=== PATIENT | male | born 1970 | race Caucasian/White ===

== ENCOUNTER 2016-10-15 17:25 | Emergency (ER) | payer OTHER ==
[2016-10-15 17:43] VITALS: BP 136/85; PULSE 56; TEMP 97.5; BMI 29.3
[2016-10-15] MEDS ORDERED: predniSONE 20 MG TABLET (UD) PO ONE (18:53)
[2016-10-15] MEDS ORDERED: ALBUTEROL SO4 2.5/IPRATROPIUM 0.5 INH SOL 3 ML VIAL.NEB. NEB ONE ×2 (18:53→19:06)
--- NOTE | 2016-10-15 18:53 | PDOC ---
History of Present Illness - General Chief Complaint: Allergic Reaction Stated Complaint: SINUS AND THROAT CONGESTION Time Seen by Provider: 10/15/16 18:42 - History of Present Illness Initial Comments: 10/15/16 18:50 46-year-old male with a history of seasonal ALLERGIES, and occasionally in the past he is needed to use the metered-dose inhaler, although he has no diagnosis of asthma He states that in the past week or so seasonal ALLERGIES of flared, and gotten much worse He is complaining of sinus fullness, runny nose, watery eyes, and for the past 2 days she started to feel some tightness in his chest and possible wheezing He denies any fevers or chills He states that this does not feel like a URI, and feels like a bad bout of seasonal ALLERGIES He denies any chest pain or shortness of breath He denies any tongue or throat swelling He denies any other complaints at this time, and the remainder of the review of systems is negative Past History - Past Medical History Allergies/Adverse Reactions: Allergies Allergy/AdvReac Type Severity Reaction Status Date / Time Penicillins Allergy Verified 10/15/16 17:37 Home Medications: Ambulatory Orders Albuterol Sulfate Inhaler - [Ventolin Hfa Inhaler -] 1 - 2 inh PO Q4H #1 inhaler 10/15/16 Fluticasone Prop 0.05% Nasal [Flonase -] 1 - 2 spray NS DAILY #1 spray.pump 09/28 Loratadine/Pseudoephedrine [[facility] Allergy Relief D-24 Tablet] 1 each PO HS Prednisone [Deltasone -] 40 mg PO DAILY #8 tablet 10/15/16 - Psycho/Social/Smoking Cessation Hx Anxiety: No Suicidal Ideation: No Smoking History: Never smoked Hx Alcohol Use: Yes (SOCIAL) Drug/Substance Use Hx: No Substance Use Type: None *Physical Exam - Vital Signs Last Vital Signs Temp Pulse Resp BP Pulse Ox 97.5 F L 56 L 16 136/85 96 10/15/16 17:35 10/15/16 17:35 10/15/16 17:35 10/15/16 17:35 10/15/16 17:35 - Physical Exam Comments: 10/15/16 18:51 Physical exam Last Vital Signs Temp Pulse Resp BP Pulse Ox 97.5 F L 56 L 16 136/85 96 10/15/16 17:35 10/15/16 17:35 10/15/16 17:35 10/15/16 17:35 10/15/16 17:35 GENERAL: The patient is awake, alert, and fully oriented, and in no apparent distress. HEAD: Normal with no signs of trauma. EYES: There is evidence of clear nasal discharge, and ALLERGIC conjunctivitis ENT: Mouth and oropharynx benign, postnasal drip present NECK: Normal range of motion, supple LUNGS: A mildly prolonged expiratory phase is noted, with some diminished air movement but no wheezing at this time HEART: Regular rate and rhythm, normal S1 and S2 without murmur, rub or gallop. ABDOMEN: Soft, nontender, normoactive bowel sounds. No guarding, no rebound. No masses appreciated. EXTREMITIES: Normal range of motion, no edema. No clubbing or cyanosis. No cords, erythema, or tenderness. NEUROLOGICAL: Cranial nerves II through XII grossly intact. Normal speech, normal gait. PSYCH: Normal mood, normal affect. SKIN: Warm, Dry, normal turgor, no rashes or lesions noted. Medical Decision Making - Medical Decision Making 10/15/16 18:52 Seasonal ALLERGIES with some component of reactive airway disease Will give a Ventolin Atrovent neb and prednisone and reevaluate 10/15/16 18:59 SIGN OUT Case discussed in detail with oncoming Emergency Physician including history, physical exam and ancillary studies. Oncoming Emergency Physician has assumed care for the patient and will complete the evaluation and treatment. Transfer of care to Dr. Deutsch at 7 PM, awaiting Ventolin Atrovent neb, prednisone, and reevaluation *DC/Admit/Observation/Transfer Diagnosis at time of Disposition: Wheezing Seasonal allergies Qualifiers: Allergic rhinitis trigger: unspecified Qualified Code(s): J30.2 - Other seasonal allergic rhinitis - Discharge Dispostion Disposition: HOME Condition at time of disposition: Good - Prescriptions Prescriptions: Prednisone [Deltasone -] 40 mg PO DAILY #8 tablet Fluticasone Prop 0.05% Nasal [Flonase -] 1 - 2 spray NS DAILY #1 spray.pump Albuterol Sulfate Inhaler - [Ventolin Hfa Inhaler -] 1 - 2 inh PO Q4H #1 inhaler - Patient Instructions Additional Instructions: Takes prednisone 2 tablets once a day for the next 4 days. Use your inhaler 1-2 puffs as often as every 4-6 hours as needed for wheezing or shortness of breath. Use the nasal spray 1-2 sprays as often as twice a day do not use more than twice a day for nasal congestion and ALLERGY symptoms. Return to the emergency department immediately with ANY new, persistent or worsening symptoms. Continue any medications as previously prescribed by your physician. You should follow up with your primary doctor as soon as possible regarding today's emergency department visit. . Please make sure your doctor reviews the results of your emergency evaluation. Thank you for coming to the Emergency Department today for your care. It was a pleasure to see you today. Please note that your evaluation is INCOMPLETE until you follow-up with your doctor.
[2016-10-15] MEDS ORDERED: predniSONE 20 MG TABLET (UD) ONE (19:06)
--- NOTE | 2016-10-15 19:25 | PDOC ---
*Physical Exam - Vital Signs Last Vital Signs Temp Pulse Resp BP Pulse Ox 97.5 F L 56 L 16 136/85 96 10/15/16 17:35 10/15/16 17:35 10/15/16 17:35 10/15/16 17:35 10/15/16 17:35 ED Treatment Course - Medications Given in the ED: ED Medications Discontinued Medications Generic Name Dose Route Start Last Admin Trade Name Idalia PRN Reason Stop Dose Admin Albuterol/Ipratropium 1 amp 10/15/16 18:53 10/15/16 19:10 Duoneb - NEB 10/15/16 18:54 1 amp ONCE ONE Administration Prednisone 60 mg 10/15/16 18:53 10/15/16 19:10 Deltasone - PO 10/15/16 18:54 60 mg ONCE ONE Administration Progress Note - Progress Note Progress Note: Care of this patient was transferred to me at [address] Jacobsen. Patient is a 46-year-old male with history of seasonal ALLERGIES who comes in complaining of more severe seasonal ALLERGIES and he's had in the past. On Dr. Joel exam patient was wheezing with some decreased breath sounds bilateral Patient received a liter O nebulizer and some prednisone At the time of my reevaluation at 1900 hrs. patient's lungs were now clear, his O2 sat was good and he said he felt much better. Patient given prescriptions for a nasal steroid, an albuterol inhaler, and prednisone. Patient discharged home will follow-up with his primary care doctor. *DC/Admit/Observation/Transfer Diagnosis at time of Disposition: Wheezing Seasonal allergies Qualifiers: Allergic rhinitis trigger: unspecified Qualified Code(s): J30.2 - Other seasonal allergic rhinitis - Discharge Dispostion Disposition: HOME Condition at time of disposition: Good - Prescriptions Prescriptions: Prednisone [Deltasone -] 40 mg PO DAILY #8 tablet Fluticasone Prop 0.05% Nasal [Flonase -] 1 - 2 spray NS DAILY #1 spray.pump Albuterol Sulfate Inhaler - [Ventolin Hfa Inhaler -] 1 - 2 inh PO Q4H #1 inhaler - Patient Instructions Additional Instructions: Takes prednisone 2 tablets once a day for the next 4 days. Use your inhaler 1-2 puffs as often as every 4-6 hours as needed for wheezing or shortness of breath. Use the nasal spray 1-2 sprays as often as twice a day do not use more than twice a day for nasal congestion and ALLERGY symptoms. Return to the emergency department immediately with ANY new, persistent or worsening symptoms. Continue any medications as previously prescribed by your physician. You should follow up with your primary doctor as soon as possible regarding today's emergency department visit. . Please make sure your doctor reviews the results of your emergency evaluation. Thank you for coming to the Emergency Department today for your care. It was a pleasure to see you today. Please note that your evaluation is INCOMPLETE until you follow-up with your doctor.
== END 2016-10-15 19:52 | disposition home or self-care (01) ==
LOC: FER 17:25
PROC: 3E0F7GC Introduction of Other Therapeutic Substance into Respiratory Tract, Via Natural or Artificial Opening (ICD-10-PCS; principal; 2016-10-15)
DX: J30.2 Other seasonal allergic rhinitis (principal)
CPT/HCPCS: 99282-25